=== PATIENT | female | born 1975 | race African-American/Black ===

== ENCOUNTER 2017-07-17 15:33 | Emergency (ER) | payer MEDICAID ==
[~2017-07-17] VITALS: Ht 162.6 cm; Wt 100.0 kg
[2017-07-17 15:41] VITALS: BP 145/85
== END 2017-07-18 01:09 | disposition home or self-care (01) ==
LOC: ER 15:33
DX: M25.562 Pain in left knee (principal); G89.29 Other chronic pain; I10 Essential (primary) hypertension; K59.00 Constipation, unspecified
CPT/HCPCS: 99283; Z7610

== ENCOUNTER 2019-11-08 02:19 | Emergency (ER) | payer MEDICAID ==
[~2019-11-08] VITALS: Ht 160 cm; Wt 118.0 kg
[2019-11-08] MEDS ORDERED: ACETAMINOPHEN 325MG TABLET PO PRN (04:30)
[2019-11-08 04:55] LABS: BASOPHILS % 0.2 % (0.0-2.0); EOSINOPHILS % 0.1 % (0.0-5.0); LYMPHOCYTES % 10.5 % (20.0-50.0); MEAN CORPUSCULAR HEMOGLOBIN 22.8 pg (28.0-32.0); MEAN CORPUSCULAR VOLUME 75.3 fL (81.0-99.0); MEAN PLATELET VOLUME 8.7 fl (7.4-10.4); MONOCYTES % 5.3 % (2.0-8.0); NEUTROPHILS % 83.9 % (40.0-76.0); PLATELET 256 x1000/uL (130-400); RED BLOOD CELL COUNT 2.39 mill/uL (4.2-5.4); RED CELL DISTRIBUTION WIDTH 24.8 % (11.6-14.6)
[2019-11-08 04:58] LABS: HEMOGLOBIN. 5.5 g/dL (12.0-16.0)
[2019-11-08 05:03] LABS: CHLORIDE 108 mEq/L (98-107)
[2019-11-08 05:13] LABS: B-HCG QUANTITATIVE < 1 mIU/mL (<3)
[2019-11-08 05:27] LABS: PROTHROMBIN TIME 10.3 sec (9.6-11.0)
[2019-11-08 05:36] LABS: PLATELET ESTIMATE NORMAL
[2019-11-08 07:57] VITALS: BP 124/72
[2019-11-08 08:32] LABS: CLARITY URINE CLEAR (CLEAR); COLOR URINE YELLOW (YELLOW); KETONES URINE TRACE (NEGATIVE); LEUKOCYTE ESTERASE URINE NEGATIVE (NEGATIVE); NITRITE URINE NEGATIVE (NEGATIVE); OCCULT BLOOD URINE 1+ (NEGATIVE); PROTEIN URINE NEGATIVE (NEGATIVE); SPECIFIC GRAVITY URINE 1.007 (1.005-1.030); UROBILINOGEN URINE 0.2 E.U./dL (0.2-1.0)
== END 2019-11-08 08:33 | disposition left against medical advice (07) ==
LOC: ER 02:19 → EDBEDREQ 05:13 → EDBEDREQTM 05:37 → EDBEDREQ 05:37 → CANRESERV 07:49 → ENRESERV 07:49 → ER 08:33 → CANBEDREQ 08:44
DX: D64.9 Anemia, unspecified (principal); I10 Essential (primary) hypertension; N93.9 Abnormal uterine and vaginal bleeding, unspecified; K59.00 Constipation, unspecified; Z87.09 Personal history of other diseases of the respiratory system; Z87.440 Personal history of urinary (tract) infections; Z86.19 Personal history of other infectious and parasitic diseases
CPT/HCPCS: 36415; 76830; 76856; 80053; 81003; 84702; 85025; 85610; 86850; 86900; 86901; 99284; Z7610

== ENCOUNTER 2023-04-25 00:15 | Emergency (ER) | payer MEDICAID ==
[~2023-04-25] VITALS: Ht 175.3 cm; Wt 79.0 kg
[2023-04-25 00:18] VITALS: O2SAT 99
[2023-04-25] MEDS ORDERED: IBUPROFEN 600MG TABLET PO ONE (06:00)
[2023-04-25 06:05] VITALS: BP 142/69
[2023-04-25] MEDS ORDERED: IBUP-2028 MT (06:53)
[2023-04-25] MEDS ORDERED: TOPUD MT (07:17)
[2023-04-25 07:20] VITALS: PULSE 71; RESP 16; TEMP 97.9
== END 2023-04-25 07:22 | disposition home or self-care (01) ==
LOC: ER 00:15
DX: S40.022A Contusion of left upper arm, initial encounter (principal); X58.XXXA Exposure to other specified factors, initial encounter; Y93.89 Activity, other specified; Y92.89 Other specified places as the place of occurrence of the external cause; Y99.8 Other external cause status
CPT/HCPCS: 73030; 73080; 73090; 81025; 99284; A4565